=== PATIENT | female | born 1990 | race Caucasian/White ===

== ENCOUNTER 2017-09-09 11:21 | Emergency (ER) | payer OTHER ==
[~2017-09-09] VITALS: Ht 165.1 cm; Wt 81.8 kg
[2017-09-09] MEDS ORDERED: OxyCODONE HCL/ACETAMINOPHEN 5-325 MG TABLET PO ONE (11:30)
[2017-09-09] MEDS ORDERED: LIDOCAINE HCL 1% 10 ML VIAL INJ ONE ×2 (11:30→12:00)
[2017-09-09] MEDS ORDERED: POVIDONE-IODINE 10% 15 ML SOLUTION UD TP ONE (11:30)
[2017-09-09] MEDS ORDERED: KETOROLAC TROMETHAMINE 30 MG/ML VIAL IVP ONE (12:00)
[2017-09-09] MEDS ORDERED: LORazepam 2 MG/ML VIAL IVP ONE (12:00)
[2017-09-09] MEDS ORDERED: HYDROGEN PEROXIDE 118 ML SOLUTION TP ONE (13:00)
[2017-09-09 13:55] VITALS: BP 124/78
== END 2017-09-09 14:58 | disposition home or self-care (01) ==
LOC: EDBD 11:22 → EMS 11:22
DX: S68.117A Complete traumatic metacarpophalangeal amputation of left little finger, initial encounter (principal); W23.0XXA Caught, crushed, jammed, or pinched between moving objects, initial encounter; Y93.89 Activity, other specified; Y92.89 Other specified places as the place of occurrence of the external cause; Y99.8 Other external cause status
CPT/HCPCS: 73140; 96374; 96375; 99284; J1885; J2060; J3490